=== PATIENT | female | born 1935 | race Caucasian/White ===

== ENCOUNTER 2017-06-04 19:15 | Inpatient (IN) | payer MEDICARE ==
--- NOTE | 2017-06-04 19:46 | ED Physician Chart ---
ED Chief Complaint/HPI - Patient Information Date Seen:: 06/04/17 Time Seen:: 19:45 Chief Complaint:: Suicidal ideation History of Present Illness:: 81 yo female was brought from SNF to ER for evaluation of suicidal ideation, talking about running into traffic. ED Past Medical History - Past Medical History Past Medical History: HTN, Asthma/COPD, Other (back pain) Surgical History: other (right partial mastectomy) Psychiatricy History: Bipolar, Other (anxiety) Family Medical History - Family Member Mother History Unknown: Yes Ethnicity: Non- Living Status: ED Assessment - Assessment Assessment/Comments:: Patient is cleared for geropsych admission.
[2017-06-04 20:04] LABS: % BASOPHILS 0.3 % (0.0-2.0); % EOSINOPHILS 0.9 % (0.0-5.0); % LYMPHOCYTES 16.8 % (20.0-50.0); % MONOCYTES 9.1 % (2.0-10.0); % NEUTROPHILS 72.9 % (40.0-80.0); EOSINOPHILE ABSOLUTE 0.1 Th/cmm (0.1-0.4); HEMATOCRIT 35.2 % (41.0-60); HEMOGLOBIN 11.1 gm/dL (12-16); LYMPHOCYTE ABSOLUTE 1.3 Th/cmm (1.5-3.0); MEAN CELL VOLUME 76.3 fl (81-100); MEAN CORPUSCULAR HEMOGLOBIN 24.1 pg (27.0-31.0); MEAN CORPUSCULAR HGB CONC 31.6 pg (28.0-36.0); MEAN PLATELET VOLUME 8.2 fl; MONOCYTE ABSOLUTE 0.7 Th/cmm (0.3-1.0); NEUTROPHILE ABSOLUTE 5.7 Th/cmm (1.8-8.0); PLATELET COUNT 397 Th/cmm (150-400); RED BLOOD COUNT 4.61 Mil/cmm (3.80-5.20); RED CELL DISTRIBUTION WIDTH 16.4 % (11.5-20.0); WHITE BLOOD COUNT 7.8 Th/cmm (4.8-10.8)
[2017-06-04 20:18] LABS: ALB/GLOB RATIO 1.3 (1.0-1.8); ALBUMIN 3.3 gm/dL (3.7-5.3); ALKALINE PHOSPHATASE 70 U/L (34-104); ANION GAP 5.1 (7.0-16.0); BILIRUBIN,TOTAL 0.2 mg/dL (0.3-1.0); BUN - UREA NITROGEN 27 mg/dL (7-25); CALCIUM SERUM 8.4 mg/dL (8.6-10.3); CARBON DIOXIDE 30.8 mEq/L (21.0-31.0); CHLORIDE 109 mEq/L (98-107); CREATININE - SERUM 0.7 mg/dL (0.6-1.2); GLUCOSE 92 mg/dL (70-105); POTASSIUM SERUM 3.9 mEq/L (3.5-5.1); SGOT 12 U/L (13-39); SGPT/ALT 12 U/L (7-52); SODIUM SERUM 141 mEq/L (136-145); TOTAL PROTEIN,SERUM 5.8 gm/dL (6.0-8.3)
[2017-06-04 21:59] LABS: URINE MICROSCOPIC INDICATED? YES; URINE SOURCE RANDOM
[2017-06-04 22:01] LABS: URINE BILIRUBIN NEGATIVE (NEGATIVE); URINE BLOOD NEGATIVE (NEGATIVE); URINE GLUCOSE (UA) NEGATIVE (NEGATIVE); URINE KETONE NEGATIVE (NEGATIVE); URINE LEUKOCYTE ESTERASE NEGATIVE (NEGATIVE); URINE NITRATE NEGATIVE (NEGATIVE); URINE PH 5.5 (4.6 - 8.0); URINE PROTEIN NEGATIVE (NEGATIVE); URINE UROBILINOGEN 0.2 E.U./dL (0.2 - 1.0)
[2017-06-04 22:07] LABS: URINE CLARITY CLEAR (CLEAR); URINE COLOR YELLOW; URINE RBC 0-2 /hpf (0-5)
[2017-06-04 22:08] LABS: URINE BACTERIA OCCASIONAL /hpf (NONE SEEN); URINE EPITHELIAL CELLS OCCASIONAL /lpf (FEW)
[2017-06-05] VITALS: BP 140/89
[2017-06-05] MEDS ORDERED: Magnesium Hydroxide (MOM) 30 mL UDC PO PRN
[2017-06-05] MEDS: Albuterol/Ipratropium Neb 3 ML AERS HHN SCH ×3 (08:14→23:50)
[2017-06-05] MEDS: Ferrous Sulfate 325 MG TAB PO SCH ×2 (08:24→16:42)
[2017-06-05] MEDS: Multivitamin Tab PO SCH (08:24)
[2017-06-05] MEDS: Calcium Carb/Vit D 500 mg/200 U Tab PO SCH (08:24)
[2017-06-05] MEDS ORDERED: Non-Formulary Item 1 EA (Fluticasone/Vilanterol [Breo Ellipta 200-25 Mcg Inh] 1 EACH) IH SCH (09:00)
--- NOTE | 2017-06-05 09:04 | Diagnostic Imaging Report ---
CHEST X-RAY: AP view INDICATION: Shortness of breath COMPARISON: None FINDINGS: Chronic lung changes are seen. Postsurgical changes along the right lower hemithorax is noted possibly the right breast. Linear densities of the lower lung zones are noted. No evidence of gross free air. Heart size normal. Tortuous aorta is noted with atherosclerotic vascular disease. Degenerative changes of the spine are noted. IMPRESSION: Chronic lung changes of probable COPD. No focal consolidation identified. Linear bibasal densities which may represent atelectasis versus scarring. Postsurgical changes of right lower hemithorax which may be within the right breast, please correlate with clinical and surgical history. Tortuous aorta with atherosclerosis.
--- NOTE | 2017-06-05 09:13 | History and Physical ---
History of Present Illness - HPI Vital Signs: Last Vital Signs Temp 98.7 F 06/05/17 07:01 Pulse 92 06/05/17 08:14 Resp 18 06/05/17 08:14 BP 144/81 06/05/17 07:01 Pulse Ox 93 06/05/17 08:14 Family Medical History - Family Member Mother History Unknown: Yes Ethnicity: Unknown Living Status: Hx Family Cancer: Yes Hx Family Coronary Artery Disease: (UNKNOWN) Hx Family Congestive Heart Failure: (UNKNOWN) Hx Family Hypertension: (UNKNOWN) Hx Family Stroke: (UNKNOWN) Hx Family Diabetes: (UNKNOWN) Hx Family Seizures: (UNKNOWN) Hx Family Dementia: (UNKNOWN) Hx Family AIDS: (UNKNOWN) Hx Family HIV: No Hx Family COPD: Yes (UNKNOWN) Hx Family Hepatitis: (UNKNOWN) Hx Family Psychiatric Problems: (unknown) Hx Family Tuberculosis: (UNKNOWN) - Medications Home Medications: Home Medication Medication Instructions Recorded Type Acetaminophen [Tylenol] 650 mg PO Q6HR PRN 06/04/17 History Albuterol/Ipratropium Neb [Duoneb 3 ml HHN Q8HR 06/04/17 History Neb] Alendronate Sodium 10 mg PO DAILY 06/04/17 History Alprazolam [Alprazolam*] 0.25 mg PO Q8HR PRN 06/04/17 History Calcium Carb/Vit D 500mg/200U 1 tab PO DAILY 06/04/17 History [Oscal w/Vitamin D] Donepezil Hcl [Aricept] 5 mg PO HS 06/04/17 History Ferrous Sulfate [Iron] 325 mg PO BID 06/04/17 History Fluticasone/Vilanterol [Breo 1 each IH DAILY 06/04/17 History Ellipta 200-25 Mcg INH] Hydrocodone/APAP 5mg/325mg [[place] 1 tab PO BID PRN 06/04/17 History 5mg/325mg] QUEtiapine Fumarate [SEROquel] 50 mg PO HS 06/04/17 History Ranitidine HCl 150 mg PO BID 06/04/17 History - Allergies Allergies/Adverse Reactions: Allergies Allergy/AdvReac Type Severity Reaction Status Date / Time No Known Allergies Allergy Verified 06/04/17 19:49
[2017-06-05] MEDS: Maalox 30 mL Cup PO PRN (10:57)
[2017-06-06] MEDS: Maalox 30 mL Cup PO PRN ×2 (06:55→11:17)
[2017-06-06] MEDS: Albuterol/Ipratropium Neb 3 ML AERS HHN SCH ×3 (07:21→23:19)
--- NOTE | 2017-06-06 07:39 | Psychosocial Evaluation ---
DATE OF SERVICE: 06/05/2017 JUSTIFICATION FOR HOSPITALIZATION: Sent over from a retirement facility, suicidal, apparently endorsing intent and plan to run into traffic. CHIEF COMPLAINT: "I am very depressed." HISTORY OF PRESENT ILLNESS: An 81-year-old female, severely depressed, hopeless, despairing, no family support, no social support, difficulty sleeping at night. Fair appetite hopeless and helpless thoughts, not wanting to live anymore, endorsing psychological distress, in turmoil. PAST PSYCHIATRIC HISTORY: Apparently with bipolar affective disorder, had been on Abilify, Seroquel, and Paxil. FAMILY HISTORY: Noncontributory. SOCIAL HISTORY: Some family involvement from son and daughter. The patient states that she is lonely, misses her family, living in a retirement facility. MEDICATIONS: Noted. PAST MEDICAL HISTORY: Reviewed. MENTAL STATUS EXAMINATION: Stated age. Fair eye contact, hard of hearing. Mood "Upset." Affect constricted. Thought processes were somewhat disoriented, but awake and alert and engaged. The patient endorsing SI with thoughts to run into traffic. No HI. No overt psychotic symptoms. Insight and judgment diminished. Poor coping, poor impulse control. PROVISIONAL DIAGNOSES: Bipolar, most recent episode depressed, also with history of dementia. Under medical, please see full H and P. ESTIMATED LENGTH OF STAY: 5-6 days. ASSESSMENT: The patient requiring inpatient hospitalization, severely depressed, hopeless, suicidal, endorsing intent and plan. PLAN: Restart Seroquel. The patient historically seems to have been doing better on Seroquel. We will increase collateral. TREATMENT PLAN: Includes group as well as milieu therapy. CONDITIONS FOR DISCHARGE: Improved mood, improved affect, cessation of any SI, better coping. JOB# [id number]
[2017-06-06] MEDS: Multivitamin Tab PO SCH (08:06)
[2017-06-06] MEDS: Ferrous Sulfate 325 MG TAB PO SCH ×2 (08:06→16:16)
[2017-06-06] MEDS: Calcium Carb/Vit D 500 mg/200 U Tab PO SCH (08:06)
--- NOTE | 2017-06-06 08:43 | General Progress Note ---
Subjective - Review of Systems Events since last encounter: confused in no acute distress Objective - Results Result Diagrams: 06/04/17 19:59 06/04/17 19:59 Recent Labs: Laboratory Last Values WBC 7.8 Th/cmm (4.8-10.8) 06/04/17 19:59 RBC 4.61 Mil/cmm (3.80-5.20) 06/04/17 19:59 Hgb 11.1 gm/dL (12-16) L 06/04/17 19:59 Hct 35.2 % (41.0-60) L 06/04/17 19:59 MCV 76.3 fl (81-100) L 06/04/17 19:59 MCH 24.1 pg (27.0-31.0) L 06/04/17 19:59 MCHC Differential 31.6 pg (28.0-36.0) 06/04/17 19:59 RDW 16.4 % (11.5-20.0) 06/04/17 19:59 Plt Count 397 Th/cmm (150-400) 06/04/17 19:59 MPV 8.2 fl 06/04/17 19:59 Neutrophils % 72.9 % (40.0-80.0) 06/04/17 19:59 Lymphocytes % 16.8 % (20.0-50.0) L 06/04/17 19:59 Monocytes % 9.1 % (2.0-10.0) 06/04/17 19:59 Eosinophils % 0.9 % (0.0-5.0) 06/04/17 19:59 Basophils % 0.3 % (0.0-2.0) 06/04/17 19:59 Sodium 141 mEq/L (136-145) 06/04/17 19:59 Potassium 3.9 mEq/L (3.5-5.1) 06/04/17 19:59 Chloride 109 mEq/L (98-107) H 06/04/17 19:59 Carbon Dioxide 30.8 mEq/L (21.0-31.0) 06/04/17 19:59 Anion Gap 5.1 (7.0-16.0) L 06/04/17 19:59 BUN 27 mg/dL (7-25) H 06/04/17 19:59 Creatinine 0.7 mg/dL (0.6-1.2) 06/04/17 19:59 Est GFR ( Amer) TNP 06/04/17 19:59 Est GFR (Non-Af Amer) TNP 06/04/17 19:59 BUN/Creatinine Ratio 38.6 06/04/17 19:59 Glucose 92 mg/dL (70-105) 06/04/17 19:59 Calcium 8.4 mg/dL (8.6-10.3) L 06/04/17 19:59 Total Bilirubin 0.2 mg/dL (0.3-1.0) L 06/04/17 19:59 AST 12 U/L (13-39) L 06/04/17 19:59 ALT 12 U/L (7-52) 06/04/17 19:59 Alkaline Phosphatase 70 U/L (34-104) 06/04/17 19:59 Total Protein 5.8 gm/dL (6.0-8.3) L 06/04/17 19:59 Albumin 3.3 gm/dL (3.7-5.3) L 06/04/17 19:59 Globulin 2.5 gm/dL 06/04/17 19:59 Albumin/Globulin Ratio 1.3 (1.0-1.8) 06/04/17 19:59 TSH 1.17 uIU/ml (0.34-5.60) 06/04/17 19:59 Urine Source RANDOM 06/04/17 21:30 Urine Color YELLOW 06/04/17 21:30 Urine Clarity CLEAR (CLEAR) 06/04/17 21:30 Urine pH 5.5 (4.6 - 8.0) 06/04/17 21:30 Ur Specific [place] >= 1.030 (1.005-1.030) 06/04/17 21:30 Urine Protein NEGATIVE mg/dL (NEGATIVE) 06/04/17 21:30 Urine Glucose (UA) NEGATIVE mg/dL (NEGATIVE) 06/04/17 21:30 Urine Ketones NEGATIVE mg/dL (NEGATIVE) 06/04/17 21:30 Urine Blood NEGATIVE (NEGATIVE) 06/04/17 21:30 Urine Nitrate NEGATIVE (NEGATIVE) 06/04/17 21:30 Urine Bilirubin NEGATIVE (NEGATIVE) 06/04/17 21:30 Urine Urobilinogen 0.2 E.U./dL (0.2 - 1.0) 06/04/17 21:30 Ur Leukocyte Esterase NEGATIVE (NEGATIVE) 06/04/17 21:30 Urine RBC 0-2 /hpf (0-5) 06/04/17 21:30 Urine WBC 2-5 /hpf (0-5) 06/04/17 21:30 Ur Epithelial Cells OCCASIONAL /lpf (FEW) 06/04/17 21:30 Urine Bacteria OCCASIONAL /hpf (NONE SEEN) 06/04/17 21:30 - Physical Exam Vitals and I&O: Vital Signs Temp 98.6 F 06/05/17 17:48 Pulse 90 06/06/17 07:22 Resp 18 06/06/17 07:22 BP 132/73 06/05/17 17:48 Pulse Ox 95 06/06/17 07:22 Intake & Output 06/05/17 06/06/17 06/06/17 18:59 06:59 18:59 Intake Total 120 Balance 120 Intake: Oral 120 Other: # Voids 3 Active Medications: Current Medications Acetaminophen (Tylenol) 650 mg PO Q6HR PRN PRN Reason: Mild Pain or Fever >101 Stop: 08/04/17 00:07 Acetaminophen/Hydrocodone Bitart ([place] 5mg/325mg) 1 tab PO BID PRN PRN Reason: Pain (Moderate) Stop: 08/04/17 00:07 Al Hydrox/Mg Hydrox/Simethicone (Maalox) 30 ml PO Q4HR PRN PRN Reason: GI DISTRESS Stop: 08/04/17 00:00 Last Admin: 06/06/17 06:55 Dose: 30 ml Albuterol/Ipratropium (Duoneb Neb) 3 ml HHN Q8HRT [facility] Stop: 08/04/17 06:59 Last Admin: 06/06/17 07:21 Dose: 3 ml Alprazolam (Xanax) 0.25 mg PO Q8HR PRN; Protocol PRN Reason: Anxiety Stop: 08/04/17 00:07 Calcium/Vitamin D (Oscal W/Vitamin D) 1 tab PO DAILY [facility] Stop: 08/04/17 08:59 Last Admin: 06/06/17 08:06 Dose: 1 tab Donepezil HCl (Aricept) 5 mg PO HS [facility] Stop: 08/04/17 20:59 Last Admin: 06/05/17 20:24 Dose: 5 mg Ferrous Sulfate (Iron) 325 mg PO BID [facility] Stop: 08/04/17 08:59 Last Admin: 06/06/17 08:06 Dose: 325 mg Lorazepam (Ativan) 0.5 mg PO Q4HR PRN; Protocol PRN Reason: Anxiety Stop: 07/05/17 00:00 Last Admin: 06/05/17 12:51 Dose: 0.5 mg Magnesium Hydroxide (Milk Of Magnesia) 30 ml PO HS PRN PRN Reason: Constipation Miscellaneous (Alendronate Sodium [Alendronate Sodium]) 10 mg PO DAILY [facility] Stop: 08/04/17 08:59 Miscellaneous (Fluticasone/Vilanterol [Breo Ellipta 200-25 Mcg Inh]) 1 each IH DAILY [facility] Stop: 08/04/17 08:59 Multivitamins/Vitamin C (Theragran) 1 tab PO DAILY [facility] Stop: 08/04/17 08:59 Last Admin: 06/06/17 08:06 Dose: 1 tab Quetiapine Fumarate (Seroquel) 50 mg PO HS [facility] PRN Reason: Protocol Stop: 08/04/17 20:59 Last Admin: 06/05/17 20:24 Dose: 50 mg Zolpidem Tartrate (Ambien) 5 mg PO HS PRN PRN Reason: Insomnia Stop: 08/04/17 00:00
--- NOTE | 2017-06-06 14:39 | Progress Notes ---
DATE: 06/06/[address] Kline. Case was discussed with staff of the patient, reviewed records. This is an 81-year-old female who was admitted on 06/04/2017, [facility]. She was suicidal, endorsing intent and plan to run into traffic. She was feeling depressed. No family support, no social supports and unable to sleep. Appetite is fair and feeling hopeless and helpless and not wanting to live anymore, endorsing psychological distress in terms. She has a history of bipolar affective disorder, has been on Abilify, Seroquel and Paxil. The patient when I talked to her, she was internally preoccupied. She is still depressed, suicidal, but she did not disclose any plan for me. She ignored me. She was restarted on her medication by Dr. Kline yesterday. She is on alprazolam 0.25 mg every 8 hours and Aricept 5 mg at bedtime. She is demented and confused and Seroquel 50 mg at bedtime. She is unpredictable, impulsive, needing redirection, so it is too early to make any adjustments to her medication. We will continue to work with the patient in group therapy, milieu therapy, adjust the medication as needed. JOB# [id number]
[2017-06-07] MEDS: Maalox 30 mL Cup PO PRN ×2 (02:03→17:49)
[2017-06-07] MEDS: Albuterol/Ipratropium Neb 3 ML AERS HHN SCH ×2 (08:37→16:17)
[2017-06-07] MEDS: Ferrous Sulfate 325 MG TAB PO SCH ×2 (08:54→17:49)
[2017-06-07] MEDS: Multivitamin Tab PO SCH (08:54)
[2017-06-07] MEDS: Calcium Carb/Vit D 500 mg/200 U Tab PO SCH (08:54)
--- NOTE | 2017-06-07 19:36 | Progress Notes ---
DATE: 06/07/2017 Case was discussed with staff of the patient, reviewed records. The patient continues to be depressed, at times suicidal, continues to be unpredictable, impulsive, needing redirection. Continues to feel hopeless and helpless. Continues to have poor insight, unable to make safe plan for self-care. She is also demented. No side effects with the medication, no sedation, no nausea, no extrapyramidal symptoms. We will continue outpatient group therapy, milieu therapy, adjust the medication as needed. [facility]# [id number]
--- NOTE | 2017-06-07 20:53 | Internal Medicine Prog Note ---
Internal Medicine Subjective - Subjective Service Date: 06/07/17 Patient seen and examined:: with staff Patient is:: awake Per staff patient has:: no adverse event Internal Medicine Objective - Results Result Diagrams: 06/04/17 19:59 06/04/17 19:59 Recent Labs: Laboratory Last Values WBC 7.8 Th/cmm (4.8-10.8) 06/04/17 19:59 RBC 4.61 Mil/cmm (3.80-5.20) 06/04/17 19:59 Hgb 11.1 gm/dL (12-16) L 06/04/17 19:59 Hct 35.2 % (41.0-60) L 06/04/17 19:59 MCV 76.3 fl (81-100) L 06/04/17 19:59 MCH 24.1 pg (27.0-31.0) L 06/04/17 19:59 MCHC Differential 31.6 pg (28.0-36.0) 06/04/17 19:59 RDW 16.4 % (11.5-20.0) 06/04/17 19:59 Plt Count 397 Th/cmm (150-400) 06/04/17 19:59 MPV 8.2 fl 06/04/17 19:59 Neutrophils % 72.9 % (40.0-80.0) 06/04/17 19:59 Lymphocytes % 16.8 % (20.0-50.0) L 06/04/17 19:59 Monocytes % 9.1 % (2.0-10.0) 06/04/17 19:59 Eosinophils % 0.9 % (0.0-5.0) 06/04/17 19:59 Basophils % 0.3 % (0.0-2.0) 06/04/17 19:59 Sodium 141 mEq/L (136-145) 06/04/17 19:59 Potassium 3.9 mEq/L (3.5-5.1) 06/04/17 19:59 Chloride 109 mEq/L (98-107) H 06/04/17 19:59 Carbon Dioxide 30.8 mEq/L (21.0-31.0) 06/04/17 19:59 Anion Gap 5.1 (7.0-16.0) L 06/04/17 19:59 BUN 27 mg/dL (7-25) H 06/04/17 19:59 Creatinine 0.7 mg/dL (0.6-1.2) 06/04/17 19:59 Est GFR ( Amer) TNP 06/04/17 19:59 Est GFR (Non-Af Amer) TNP 06/04/17 19:59 BUN/Creatinine Ratio 38.6 06/04/17 19:59 Glucose 92 mg/dL (70-105) 06/04/17 19:59 Calcium 8.4 mg/dL (8.6-10.3) L 06/04/17 19:59 Total Bilirubin 0.2 mg/dL (0.3-1.0) L 06/04/17 19:59 AST 12 U/L (13-39) L 06/04/17 19:59 ALT 12 U/L (7-52) 06/04/17 19:59 Alkaline Phosphatase 70 U/L (34-104) 06/04/17 19:59 Total Protein 5.8 gm/dL (6.0-8.3) L 06/04/17 19:59 Albumin 3.3 gm/dL (3.7-5.3) L 06/04/17 19:59 Globulin 2.5 gm/dL 06/04/17 19:59 Albumin/Globulin Ratio 1.3 (1.0-1.8) 06/04/17 19:59 TSH 1.17 uIU/ml (0.34-5.60) 06/04/17 19:59 Urine Source RANDOM 06/04/17 21:30 Urine Color YELLOW 06/04/17 21:30 Urine Clarity CLEAR (CLEAR) 06/04/17 21:30 Urine pH 5.5 (4.6 - 8.0) 06/04/17 21:30 Ur Specific [place] >= 1.030 (1.005-1.030) 06/04/17 21:30 Urine Protein NEGATIVE mg/dL (NEGATIVE) 06/04/17 21:30 Urine Glucose (UA) NEGATIVE mg/dL (NEGATIVE) 06/04/17 21:30 Urine Ketones NEGATIVE mg/dL (NEGATIVE) 06/04/17 21:30 Urine Blood NEGATIVE (NEGATIVE) 06/04/17 21:30 Urine Nitrate NEGATIVE (NEGATIVE) 06/04/17 21:30 Urine Bilirubin NEGATIVE (NEGATIVE) 06/04/17 21:30 Urine Urobilinogen 0.2 E.U./dL (0.2 - 1.0) 06/04/17 21:30 Ur Leukocyte Esterase NEGATIVE (NEGATIVE) 06/04/17 21:30 Urine RBC 0-2 /hpf (0-5) 06/04/17 21:30 Urine WBC 2-5 /hpf (0-5) 06/04/17 21:30 Ur Epithelial Cells OCCASIONAL /lpf (FEW) 06/04/17 21:30 Urine Bacteria OCCASIONAL /hpf (NONE SEEN) 06/04/17 21:30 - Physical Exam Vitals and I&O: Vital Signs Temp 98.5 F 06/07/17 16:40 Pulse 88 06/07/17 16:40 Resp 22 06/07/17 16:40 BP 137/76 06/07/17 16:40 Pulse Ox 94 06/07/17 16:40 Intake & Output 06/07/17 06/07/17 06/08/17 06:59 18:59 06:59 Intake Total 250 Balance 250 Intake: Oral 250 Other: # Voids 2 # Bowel Movements 0 Active Medications: Current Medications Acetaminophen (Tylenol) 650 mg PO Q6HR PRN PRN Reason: Mild Pain or Fever >101 Stop: 08/04/17 00:07 Acetaminophen/Hydrocodone Bitart ([place] 5mg/325mg) 1 tab PO BID PRN PRN Reason: Pain (Moderate) Stop: 08/04/17 00:07 Al Hydrox/Mg Hydrox/Simethicone (Maalox) 30 ml PO Q4HR PRN PRN Reason: GI DISTRESS Stop: 08/04/17 00:00 Last Admin: 06/07/17 17:49 Dose: 30 ml Albuterol/Ipratropium (Duoneb Neb) 3 ml HHN Q8HRT [facility] Stop: 08/04/17 06:59 Last Admin: 06/07/17 16:17 Dose: 3 ml Alendronate Sodium (Fosamax) 70 mg PO Sa@0600 [facility] Stop: 08/07/17 05:59 Alprazolam (Xanax) 0.25 mg PO Q8HR PRN; Protocol PRN Reason: Anxiety Stop: 08/04/17 00:07 Calcium/Vitamin D (Oscal W/Vitamin D) 1 tab PO DAILY [facility] Stop: 08/04/17 08:59 Last Admin: 06/07/17 08:54 Dose: 1 tab Donepezil HCl (Aricept) 5 mg PO HS [facility] Stop: 08/04/17 20:59 Last Admin: 06/06/17 21:08 Dose: 5 mg Ferrous Sulfate (Iron) 325 mg PO BID [facility] Stop: 08/04/17 08:59 Last Admin: 06/07/17 17:49 Dose: 325 mg Lorazepam (Ativan) 0.5 mg PO Q4HR PRN; Protocol PRN Reason: Anxiety Stop: 07/05/17 00:00 Last Admin: 06/07/17 01:57 Dose: 0.5 mg Magnesium Hydroxide (Milk Of Magnesia) 30 ml PO HS PRN PRN Reason: Constipation Multivitamins/Vitamin C (Theragran) 1 tab PO DAILY [facility] Stop: 08/04/17 08:59 Last Admin: 06/07/17 08:54 Dose: 1 tab Quetiapine Fumarate (Seroquel) 50 mg PO HS [facility] PRN Reason: Protocol Stop: 08/04/17 20:59 Last Admin: 06/06/17 21:08 Dose: 50 mg Zolpidem Tartrate (Ambien) 5 mg PO HS PRN PRN Reason: Insomnia Stop: 08/04/17 00:00 General: alert HEENT: NC/AT, PERRLA Neck: Supple Lungs: CTAB Abdomen: soft Internal Medicine Assmt/Plan - Assessment Assessment: HTN, Asthma/COPD back pain - Plan Plan: cpm
[2017-06-08] MEDS: Albuterol/Ipratropium Neb 3 ML AERS HHN SCH ×4 (00:19→23:38)
[2017-06-08] MEDS: Hydrocodone/APAP 5mg/325mg Tab PO PRN ×2 (05:30→12:50)
[2017-06-08] MEDS: Ferrous Sulfate 325 MG TAB PO SCH ×2 (08:56→16:50)
[2017-06-08] MEDS: Multivitamin Tab PO SCH (08:56)
[2017-06-08] MEDS: Calcium Carb/Vit D 500 mg/200 U Tab PO SCH (08:56)
[2017-06-08] MEDS: Maalox 30 mL Cup PO PRN (18:11)
[2017-06-09] MEDS: Hydrocodone/APAP 5mg/325mg Tab PO PRN (06:45)
[2017-06-09] MEDS: Albuterol/Ipratropium Neb 3 ML AERS HHN SCH ×3 (06:51→22:42)
[2017-06-09] MEDS: Multivitamin Tab PO SCH (10:21)
[2017-06-09] MEDS: Calcium Carb/Vit D 500 mg/200 U Tab PO SCH (10:21)
[2017-06-09] MEDS: Ferrous Sulfate 325 MG TAB PO SCH ×2 (10:21→17:23)
--- NOTE | 2017-06-09 11:25 | General Progress Note ---
Subjective - Review of Systems Events since last encounter: awake comfortable in no acute distress Objective - Results Result Diagrams: 06/04/17 19:59 06/04/17 19:59 Recent Labs: Laboratory Last Values WBC 7.8 Th/cmm (4.8-10.8) 06/04/17 19:59 RBC 4.61 Mil/cmm (3.80-5.20) 06/04/17 19:59 Hgb 11.1 gm/dL (12-16) L 06/04/17 19:59 Hct 35.2 % (41.0-60) L 06/04/17 19:59 MCV 76.3 fl (81-100) L 06/04/17 19:59 MCH 24.1 pg (27.0-31.0) L 06/04/17 19:59 MCHC Differential 31.6 pg (28.0-36.0) 06/04/17 19:59 RDW 16.4 % (11.5-20.0) 06/04/17 19:59 Plt Count 397 Th/cmm (150-400) 06/04/17 19:59 MPV 8.2 fl 06/04/17 19:59 Neutrophils % 72.9 % (40.0-80.0) 06/04/17 19:59 Lymphocytes % 16.8 % (20.0-50.0) L 06/04/17 19:59 Monocytes % 9.1 % (2.0-10.0) 06/04/17 19:59 Eosinophils % 0.9 % (0.0-5.0) 06/04/17 19:59 Basophils % 0.3 % (0.0-2.0) 06/04/17 19:59 Sodium 141 mEq/L (136-145) 06/04/17 19:59 Potassium 3.9 mEq/L (3.5-5.1) 06/04/17 19:59 Chloride 109 mEq/L (98-107) H 06/04/17 19:59 Carbon Dioxide 30.8 mEq/L (21.0-31.0) 06/04/17 19:59 Anion Gap 5.1 (7.0-16.0) L 06/04/17 19:59 BUN 27 mg/dL (7-25) H 01/09/18 19:59 Creatinine 0.7 mg/dL (0.6-1.2) 06/04/17 19:59 Est GFR ( Amer) TNP 06/04/17 19:59 Est GFR (Non-Af Amer) TNP 06/04/17 19:59 BUN/Creatinine Ratio 38.6 06/04/17 19:59 Glucose 92 mg/dL (70-105) 06/04/17 19:59 Calcium 8.4 mg/dL (8.6-10.3) L 06/04/17 19:59 Total Bilirubin 0.2 mg/dL (0.3-1.0) L 06/04/17 19:59 AST 12 U/L (13-39) L 06/04/17 19:59 ALT 12 U/L (7-52) 06/04/17 19:59 Alkaline Phosphatase 70 U/L (34-104) 06/04/17 19:59 Total Protein 5.8 gm/dL (6.0-8.3) L 06/04/17 19:59 Albumin 3.3 gm/dL (3.7-5.3) L 06/04/17 19:59 Globulin 2.5 gm/dL 06/04/17 19:59 Albumin/Globulin Ratio 1.3 (1.0-1.8) 06/04/17 19:59 TSH 1.17 uIU/ml (0.34-5.60) 06/04/17 19:59 Urine Source RANDOM 06/04/17 21:30 Urine Color YELLOW 06/04/17 21:30 Urine Clarity CLEAR (CLEAR) 06/04/17 21:30 Urine pH 5.5 (4.6 - 8.0) 06/04/17 21:30 Ur Specific [place] >= 1.030 (1.005-1.030) 06/04/17 21:30 Urine Protein NEGATIVE mg/dL (NEGATIVE) 06/04/17 21:30 Urine Glucose (UA) NEGATIVE mg/dL (NEGATIVE) 06/04/17 21:30 Urine Ketones NEGATIVE mg/dL (NEGATIVE) 06/04/17 21:30 Urine Blood NEGATIVE (NEGATIVE) 06/04/17 21:30 Urine Nitrate NEGATIVE (NEGATIVE) 06/04/17 21:30 Urine Bilirubin NEGATIVE (NEGATIVE) 06/04/17 21:30 Urine Urobilinogen 0.2 E.U./dL (0.2 - 1.0) 06/04/17 21:30 Ur Leukocyte Esterase NEGATIVE (NEGATIVE) 06/04/17 21:30 Urine RBC 0-2 /hpf (0-5) 06/04/17 21:30 Urine WBC 2-5 /hpf (0-5) 06/04/17 21:30 Ur Epithelial Cells OCCASIONAL /lpf (FEW) 06/04/17 21:30 Urine Bacteria OCCASIONAL /hpf (NONE SEEN) 06/04/17 21:30 - Physical Exam Vitals and I&O: Vital Signs Temp 97.6 F 06/08/17 14:53 Pulse 102 06/09/17 06:50 Resp 16 06/09/17 06:50 BP 123/66 06/08/17 14:53 Pulse Ox 95 06/09/17 06:50 Intake & Output 06/08/17 06/09/17 06/09/17 18:59 06:59 18:59 Intake Total 500 Output Total 1 Balance 499 Intake: Oral 500 Output: Urine/Stool Mix 1 Other: # Voids 3 Active Medications: Current Medications Acetaminophen (Tylenol) 650 mg PO Q6HR PRN PRN Reason: Mild Pain or Fever >101 Stop: 08/04/17 00:07 Acetaminophen/Hydrocodone Bitart ([place] 5mg/325mg) 1 tab PO BID PRN PRN Reason: Pain (Moderate) Stop: 08/04/17 00:07 Last Admin: 06/09/17 06:45 Dose: 1 tab Al Hydrox/Mg Hydrox/Simethicone (Maalox) 30 ml PO Q4HR PRN PRN Reason: GI DISTRESS Stop: 08/04/17 00:00 Last Admin: 06/08/17 18:11 Dose: 30 ml Albuterol/Ipratropium (Duoneb Neb) 3 ml HHN Q8HRT [facility] Stop: 08/04/17 06:59 Last Admin: 06/09/17 06:51 Dose: 3 ml Alendronate Sodium (Fosamax) 70 mg PO Sa@0600 [facility] Stop: 08/07/17 05:59 Last Admin: 06/08/17 05:29 Dose: 70 mg Alprazolam (Xanax) 0.25 mg PO Q8HR PRN; Protocol PRN Reason: Anxiety Stop: 08/04/17 00:07 Calcium/Vitamin D (Oscal W/Vitamin D) 1 tab PO DAILY [facility] Stop: 08/04/17 08:59 Last Admin: 06/09/17 10:21 Dose: 1 tab Donepezil HCl (Aricept) 5 mg PO HS [facility] Stop: 08/04/17 20:59 Last Admin: 06/08/17 21:27 Dose: 5 mg Ferrous Sulfate (Iron) 325 mg PO BID [facility] Stop: 08/04/17 08:59 Last Admin: 06/09/17 10:21 Dose: 325 mg Lorazepam (Ativan) 0.5 mg PO Q4HR PRN; Protocol PRN Reason: Anxiety Stop: 07/05/17 00:00 Last Admin: 06/07/17 01:57 Dose: 0.5 mg Magnesium Hydroxide (Milk Of Magnesia) 30 ml PO HS PRN PRN Reason: Constipation Multivitamins/Vitamin C (Theragran) 1 tab PO DAILY [facility] Stop: 08/04/17 08:59 Last Admin: 06/09/17 10:21 Dose: 1 tab Quetiapine Fumarate (Seroquel) 50 mg PO HS [facility] PRN Reason: Protocol Stop: 08/04/17 20:59 Last Admin: 06/08/17 21:27 Dose: 50 mg Zolpidem Tartrate (Ambien) 5 mg PO HS PRN PRN Reason: Insomnia Stop: 08/04/17 00:00 Last Admin: 06/08/17 21:27 Dose: 5 mg Assessment/Plan - Problem List Patient Problems: All Active Problems Asthma (Acute) J45.909 Back pain (Acute) COPD (chronic obstructive pulmonary disease) (Acute) HTN (hypertension) (Acute) I10 - Plan Plan: As per psych
[2017-06-09] MEDS: Maalox 30 mL Cup PO PRN ×2 (11:44→20:29)
[2017-06-10] MEDS: Albuterol/Ipratropium Neb 3 ML AERS HHN SCH ×3 (06:26→14:22)
--- NOTE | 2017-06-10 06:37 | Progress Notes ---
DATE: 06/08/2017 SUBJECTIVE: The patient seen, chart reviewed, and discussed with staff. The patient continues to be depressed, endorsing passive suicidal ideations, feeling of hopelessness and helplessness, continues to be confused and disoriented. She has, however, been compliant with her medications, following unit rules with minimal redirections. PLAN: The patient continues to be very confused and impulsive. It is felt that she will require continued inpatient care for stabilization and treatment. We will monitor the patient on a daily basis for response to medications and titrate meds as needed. JOB# [id number]
--- NOTE | 2017-06-10 06:42 | Progress Notes ---
DATE: SUBJECTIVE: The patient seen, chart reviewed, and discussed with staff. The patient continues to be very depressed, endorsing feeling of hopelessness, helplessness as well as passive suicidal ideations. She has, however, been compliant with medications, following unit rules with minimal redirections. PLAN: The patient continues to be very depressed and suicidal. It is felt that she will require continued inpatient care for stabilization and treatment. We will monitor the patient on a daily basis for response to medications and titrate medications as needed. [facility]# [id number]
[2017-06-10] MEDS: Calcium Carb/Vit D 500 mg/200 U Tab PO SCH (09:19)
[2017-06-10] MEDS: Ferrous Sulfate 325 MG TAB PO SCH ×2 (09:19→16:19)
[2017-06-10] MEDS: Multivitamin Tab PO SCH (09:19)
[2017-06-10] MEDS ORDERED: Albuterol/Ipratropium Neb 3 ML AERS HHN ONE (10:41)
--- NOTE | 2017-06-10 12:46 | General Progress Note ---
Subjective - Review of Systems Events since last encounter: patient continues to be depressed hopeless , denies pain Objective - Results Result Diagrams: 06/04/17 19:59 06/04/17 19:59 Recent Labs: Laboratory Last Values WBC 7.8 Th/cmm (4.8-10.8) 06/04/17 19:59 RBC 4.61 Mil/cmm (3.80-5.20) 06/04/17 19:59 Hgb 11.1 gm/dL (12-16) L 06/04/17 19:59 Hct 35.2 % (41.0-60) L 06/04/17 19:59 MCV 76.3 fl (81-100) L 06/04/17 19:59 MCH 24.1 pg (27.0-31.0) L 06/04/17 19:59 MCHC Differential 31.6 pg (28.0-36.0) 06/04/17 19:59 RDW 16.4 % (11.5-20.0) 06/04/17 19:59 Plt Count 397 Th/cmm (150-400) 06/04/17 19:59 MPV 8.2 fl 06/04/17 19:59 Neutrophils % 72.9 % (40.0-80.0) 06/04/17 19:59 Lymphocytes % 16.8 % (20.0-50.0) L 06/04/17 19:59 Monocytes % 9.1 % (2.0-10.0) 06/04/17 19:59 Eosinophils % 0.9 % (0.0-5.0) 06/04/17 19:59 Basophils % 0.3 % (0.0-2.0) 06/04/17 19:59 Sodium 141 mEq/L (136-145) 06/04/17 19:59 Potassium 3.9 mEq/L (3.5-5.1) 06/04/17 19:59 Chloride 109 mEq/L (98-107) H 06/04/17 19:59 Carbon Dioxide 30.8 mEq/L (21.0-31.0) 06/04/17 19:59 Anion Gap 5.1 (7.0-16.0) L 06/04/17 19:59 BUN 27 mg/dL (7-25) H 06/04/17 19:59 Creatinine 0.7 mg/dL (0.6-1.2) 06/04/17 19:59 Est GFR ( Amer) TNP 06/04/17 19:59 Est GFR (Non-Af Amer) TNP 06/04/17 19:59 BUN/Creatinine Ratio 38.6 06/04/17 19:59 Glucose 92 mg/dL (70-105) 06/04/17 19:59 Calcium 8.4 mg/dL (8.6-10.3) L 06/04/17 19:59 Total Bilirubin 0.2 mg/dL (0.3-1.0) L 06/04/17 19:59 AST 12 U/L (13-39) L 06/04/17 19:59 ALT 12 U/L (7-52) 06/04/17 19:59 Alkaline Phosphatase 70 U/L (34-104) 06/04/17 19:59 Total Protein 5.8 gm/dL (6.0-8.3) L 06/04/17 19:59 Albumin 3.3 gm/dL (3.7-5.3) L 06/04/17 19:59 Globulin 2.5 gm/dL 06/04/17 19:59 Albumin/Globulin Ratio 1.3 (1.0-1.8) 06/04/17 19:59 TSH 1.17 uIU/ml (0.34-5.60) 06/04/17 19:59 Urine Source RANDOM 06/04/17 21:30 Urine Color YELLOW 06/04/17 21:30 Urine Clarity CLEAR (CLEAR) 06/04/17 21:30 Urine pH 5.5 (4.6 - 8.0) 06/04/17 21:30 Ur Specific [place] >= 1.030 (1.005-1.030) 06/04/17 21:30 Urine Protein NEGATIVE mg/dL (NEGATIVE) 06/04/17 21:30 Urine Glucose (UA) NEGATIVE mg/dL (NEGATIVE) 06/04/17 21:30 Urine Ketones NEGATIVE mg/dL (NEGATIVE) 06/04/17 21:30 Urine Blood NEGATIVE (NEGATIVE) 06/04/17 21:30 Urine Nitrate NEGATIVE (NEGATIVE) 06/04/17 21:30 Urine Bilirubin NEGATIVE (NEGATIVE) 06/04/17 21:30 Urine Urobilinogen 0.2 E.U./dL (0.2 - 1.0) 06/04/17 21:30 Ur Leukocyte Esterase NEGATIVE (NEGATIVE) 06/04/17 21:30 Urine RBC 0-2 /hpf (0-5) 06/04/17 21:30 Urine WBC 2-5 /hpf (0-5) 06/04/17 21:30 Ur Epithelial Cells OCCASIONAL /lpf (FEW) 06/04/17 21:30 Urine Bacteria OCCASIONAL /hpf (NONE SEEN) 06/04/17 21:30 - Physical Exam Vitals and I&O: Vital Signs Temp 98.3 F 06/10/17 05:35 Pulse 89 06/10/17 10:56 Resp 18 06/10/17 10:56 BP 102/56 06/10/17 05:35 Pulse Ox 94 06/10/17 10:56 Intake & Output 06/09/17 06/10/17 06/10/17 18:59 06:59 18:59 Intake Total 1000 240 Balance 1000 240 Intake: Oral 1000 240 Other: # Voids 2 3 # Bowel Movements 1 0 Active Medications: Current Medications Acetaminophen (Tylenol) 650 mg PO Q6HR PRN PRN Reason: Mild Pain or Fever >101 Stop: 08/04/17 00:07 Acetaminophen/Hydrocodone Bitart ([place] 5mg/325mg) 1 tab PO BID PRN PRN Reason: Pain (Moderate) Stop: 08/04/17 00:07 Last Admin: 06/09/17 06:45 Dose: 1 tab Al Hydrox/Mg Hydrox/Simethicone (Maalox) 30 ml PO Q4HR PRN PRN Reason: GI DISTRESS Stop: 08/04/17 00:00 Last Admin: 06/09/17 20:29 Dose: 30 ml Albuterol/Ipratropium (Duoneb Neb) 3 ml HHN Q4HRT [facility] Stop: 08/09/17 10:59 Last Admin: 06/10/17 10:47 Dose: 3 ml Alendronate Sodium (Fosamax) 70 mg PO Sa@0600 [facility] Stop: 08/07/17 05:59 Last Admin: 06/08/17 05:29 Dose: 70 mg Alprazolam (Xanax) 0.25 mg PO Q8HR PRN; Protocol PRN Reason: Anxiety Stop: 08/04/17 00:07 Calcium/Vitamin D (Oscal W/Vitamin D) 1 tab PO DAILY UCHE Stop: 08/04/17 08:59 Last Admin: 06/10/17 09:19 Dose: 1 tab Donepezil HCl (Aricept) 5 mg PO HS UCHE Stop: 08/04/17 20:59 Last Admin: 06/09/17 20:29 Dose: 5 mg Ferrous Sulfate (Iron) 325 mg PO BID UCHE Stop: 08/04/17 08:59 Last Admin: 06/10/17 09:19 Dose: 325 mg Lorazepam (Ativan) 0.5 mg PO Q4HR PRN; Protocol PRN Reason: Anxiety Stop: 07/05/17 00:00 Last Admin: 06/07/17 01:57 Dose: 0.5 mg Magnesium Hydroxide (Milk Of Magnesia) 30 ml PO HS PRN PRN Reason: Constipation Multivitamins/Vitamin C (Theragran) 1 tab PO DAILY UCHE Stop: 08/04/17 08:59 Last Admin: 06/10/17 09:19 Dose: 1 tab Quetiapine Fumarate (Seroquel) 50 mg PO HS UCHE PRN Reason: Protocol Stop: 08/04/17 20:59 Last Admin: 06/09/17 20:29 Dose: 50 mg Zolpidem Tartrate (Ambien) 5 mg PO HS PRN PRN Reason: Insomnia Stop: 08/04/17 00:00 Last Admin: 06/09/17 20:29 Dose: 5 mg Assessment/Plan - Problem List Patient Problems: All Active Problems Asthma (Acute) J45.909 Back pain (Acute) COPD (chronic obstructive pulmonary disease) (Acute) HTN (hypertension) (Acute) I10 - Plan Plan: As per psych
--- NOTE | 2017-06-10 22:05 | Discharge Summary ---
DATE OF DISCHARGE: 06/10/2017 JUSTIFICATION FOR HOSPITALIZATION: The patient is suicidal. CHIEF COMPLAINT: "I am depressed." HISTORY OF PRESENT ILLNESS: An 81-year-old female, depressed, hopeless, despairing off of the Seroquel, highly sensitive to Seroquel. Seroquel was discharged few weeks ago and she was decompensating there. PAST PSYCHIATRIC HISTORY: Apparently bipolar. FAMILY HISTORY: Noncontributory. SOCIAL HISTORY: Great involvement from the daughter, the patient staying at [facility]. MEDICATIONS: Noted. MENTAL STATUS EXAMINATION: Please see full psych eval for details. PROVISIONAL DIAGNOSES: Bipolar, depressed; the patient also with history of dementia. MEDICAL: Please see full H and P. HOSPITAL COURSE: After initial assessment, the patient improved robustly, her mood improved, affect improved, getting along well with staff and peers, staff noting robust improvement, no longer suicidal, no longer endorsing intent and plan, depression improved, better med compliance, less withdrawn, family noticing improvement as well, staff noticing a lot of improvement as well, sleeping well, eating well. CONDITION UPON DISCHARGE: Improved, good attention to ADLs, good eye contact. Speech within normal limits. Mood "I feel much better." Affect brighter and broader. Thought processes were engaged. No SI, no intent, no plan. No evidence of any psychotic symptoms. Insight and judgment improved. The patient hopeful, motivated, optimistic, denying any psychological distress or turmoil. DISCHARGE DIAGNOSES: Bipolar. Also dementia, unspecified. PROGNOSIS: The patient follows up with outpatient mental health services and states my compliant with the Seroquel. Prognosis will improve, otherwise guarded. I did speak with daughter today over the phone. JOB# [id number]
--- NOTE | 2017-06-11 10:24 | Progress Notes ---
DATE: 06/10/2017 SUBJECTIVE: The patient was seen in her room, lying in the bed. The patient appears to be confused, but no aggressive behaviors noted, appears to be guarded at this time. No behavioral issues noted. OBJECTIVE: VITAL SIGNS: Temperature 98.3, heart rate 96, respirations 18, blood pressure 102/56, 94% on room air. HEENT: Head is atraumatic and normocephalic. Eyes: Bilateral conjunctivae are clear. Bilateral pupils are equally round and reactive. NECK: Supple. No JVD. CARDIOVASCULAR: S1 and S2 without murmur. PULMONARY: Clear to auscultation. GASTROINTESTINAL: Soft and nontender without guarding. Positive bowel sounds. MUSCULOSKELETAL: No clubbing, no cyanosis noted. ASSESSMENT: 1. Bipolar disorder. 2. Dementia. 3. Iron deficiency anemia. 4. Osteoarthritis. 5. Osteoporosis. PLAN: We will keep the patient inpatient in [facility]. We will follow up with a psychiatrist to monitor the patient's condition and behavior and also get a followup and monitor the patient's nutritional status. Treatment plans were discussed with the patient's nurse. Treatment plans were discussed with Dr. Angeles. JOB# [id number]
== END 2017-06-10 17:40 | disposition home or self-care (01) | DRG 885 ==
LOC: ER 19:15 → GERO 22:40 → UNDOADMIN 22:40
PROVIDERS: ADMIT Psychiatry & Neurology Psychiatry; ATTEND Psychiatry & Neurology Psychiatry
DX: F31.9 Bipolar disorder, unspecified (principal); F03.90 Unspecified dementia, unspecified severity, without behavioral disturbance, psychotic disturbance, mood disturbance, and anxiety; R45.851 Suicidal ideations; I10 Essential (primary) hypertension; J44.9 Chronic obstructive pulmonary disease, unspecified; M54.9 Dorsalgia, unspecified; D50.9 Iron deficiency anemia, unspecified; M19.90 Unspecified osteoarthritis, unspecified site; M81.0 Age-related osteoporosis without current pathological fracture; Z90.11 Acquired absence of right breast and nipple; Z79.51 Long term (current) use of inhaled steroids
CPT/HCPCS: 36415-UA; 71010-TC; 80053-TC; 81001-TC; 84443-TC; 85025-TC; 93005; 94640; 94760; Z7610